=== PATIENT | female | born 1990 | race Caucasian/White ===

== ENCOUNTER → 2025-04-01 14:28 | Outpatient (REF) | payer BC, SELFPAY | LOC: PNTC 14:28 | PROVIDERS: ATTENDING PHYSICIAN Student in an Organized Health Care Education/Training Program | DX: Z36.0 Encounter for antenatal screening for chromosomal anomalies (principal); Z36.82 Encounter for antenatal screening for nuchal translucency; O99.211 Obesity complicating pregnancy, first trimester | CPT/HCPCS: 76801; 76813 ==

== ENCOUNTER → 2025-05-02 08:17 | Outpatient (REF) | payer BC, SELFPAY | LOC: PNTC 08:17 | PROVIDERS: ATTENDING PHYSICIAN Student in an Organized Health Care Education/Training Program | DX: O99.212 Obesity complicating pregnancy, second trimester (principal); Z36.86 Encounter for antenatal screening for cervical length | CPT/HCPCS: 76805 ==

== ENCOUNTER → 2025-05-27 14:56 | Outpatient (REF) | payer BC, SELFPAY | LOC: PNTC 14:56 | PROVIDERS: ATTENDING PHYSICIAN Student in an Organized Health Care Education/Training Program | DX: O99.212 Obesity complicating pregnancy, second trimester (principal); Z36.3 Encounter for antenatal screening for malformations; Z36.86 Encounter for antenatal screening for cervical length | CPT/HCPCS: 76811; 76817 ==

== ENCOUNTER → 2025-06-04 14:13 | Outpatient (REF) | payer BC, SELFPAY | LOC: PNTC 14:13 | PROVIDERS: ATTENDING PHYSICIAN Obstetrics & Gynecology | DX: O09.93 Supervision of high risk pregnancy, unspecified, third trimester (principal); Z36.2 Encounter for other antenatal screening follow-up; Z36.3 Encounter for antenatal screening for malformations | CPT/HCPCS: 76816 ==